=== PATIENT | female | born 1945 | race Two or more races ===

== ENCOUNTER → 2024-03-20 | Outpatient (CLI) | payer MEDICARE, BC, SELFPAY ==
--- NOTE | 2024-03-20 12:00 | XR_ITS ---
Examination: Bone densitometry Date and time of exam:March 20, 2000 2412 noon INDICATIONS: Menopause age 50% gastric osteoporosis Technique: Lumbar spine and hip total bone mineralization values of an calculated. Peak reference and age match control results have been displayed. Findings: Lumbar spine total bone mineralization is0.948 gm/cm2. This is 0.9 standard deviations below peak reference. This is 1.8 standard deviations above age-matched controls. Hip total bone mineralization is 0.776 gm/cm2 This is 1.4 standard deviations below peak reference. This is 0.7 standard deviations above age-matched controls Impression: There is normal mineralization based on lumbar spine measurements. There is osteopenia based on hip measurements Lumbar mineralization is increase 4.6% compared with March 28, 2021 Hip mineralization is decreased 2.2% compared with March 28, 2021
== END | disposition home or self-care (01) ==
LOC: CDIM 11:34
PROVIDERS: Referring Provider Internal Medicine; Visit Provider Internal Medicine
DX: M85.80 Other specified disorders of bone density and structure, unspecified site (principal)
CPT/HCPCS: 77080